=== PATIENT | male | born 1995 | race Caucasian/White ===

== ENCOUNTER 2023-02-25 16:12 | Emergency (ER) | payer SELFPAY ==
[~2023-02-25] VITALS: Ht 182.9 cm; Wt 91.0 kg
[2023-02-25 16:20] VITALS: O2SAT 98
[2023-02-25] MEDS ORDERED: HYDROCODONE/ACETAMINOPHEN 5/325MG TABLET PO ONE (20:30)
[2023-02-25] MEDS ORDERED: LIDOCAINE 5% PATCH TOP SCH ×2 (20:30)
[2023-02-25] MEDS ORDERED: KETOROLAC 30MG/ML VIAL IM ONE (20:30)
[2023-02-25] MEDS ORDERED: IBUP-2028 MT (21:15)
[2023-02-25] MEDS ORDERED: TOPUD MT (21:15)
[2023-02-25 21:45] VITALS: BP 121/69; PULSE 84; RESP 16; TEMP 98.9
== END 2023-02-25 22:30 | disposition home or self-care (01) ==
LOC: ER 16:12
DX: M79.672 Pain in left foot (principal); Z90.49 Acquired absence of other specified parts of digestive tract
CPT/HCPCS: 73630; 96372; 99283; J1885; Z7610